=== PATIENT | female | born 1975 | race Caucasian/White ===

== ENCOUNTER 2022-12-15 06:59 | Observation (INO) | payer OTHER, SELFPAY ==
[2022-12-14 09:43] LABS: BASOPHILS # (AUTO) 0.1 (0.0-0.1); BASOPHILS % 0.6 % (0.0-1.0); EOSINOPHILS # (AUTO) 0.1 (0.0-0.4); EOSINOPHILS % 1.4 % (0.0-6.0); HEMATOCRIT 40.9 % (34.2-44.1); HEMOGLOBIN 13.4 g/dL (12.0-16.0); LYMPHOCYTES # (AUTO) 1.6 (1.0-3.2); LYMPHOCYTES % 19.7 % (18.0-39.1); MEAN CORPUSCULAR HEMOGLOBIN 28.6 pg (28-32); MEAN CORPUSCULAR HGB CONC 32.8 g/dL (31-35); MEAN CORPUSCULAR VOLUME 87.4 fL (81-99); MONOCYTES # (AUTO) 0.6 (0.2-0.8); MONOCYTES % 6.9 % (4.4-11.3); NEUTROPHILS # (AUTO) 5.7 (2.1-6.9); NEUTROPHILS % 71.1 % (38.7-80.0); PLATELET COUNT 253 x10e3/uL (140-360); RED BLOOD COUNT 4.68 x10e6/uL (3.6-5.1)
[2022-12-14 10:04] LABS: ANION GAP 13.2 mmol/L (8-16); CALCIUM 9.4 mg/dL (8.4-10.2); CREATININE, SERUM 1.02 mg/dL (0.57-1.11); POTASSIUM 4.2 mmol/L (3.5-5.1)
[2022-12-14 10:16] LABS: INR 0.99; PROTHROMBIN TIME 13.6 seconds (11.9-14.5)
[~2022-12-15] VITALS: Ht 167.6 cm; Wt 79.4 kg
[~2022-12-15 06:59] MED LIST: AVODART0.5 MG PO; B COMPLEX1 EACH; CELECOXIB 200 MG CAP ONE; DEXAMETHASONE SOD PHOS 10 MG/1 ML VIAL ONE; DOXEPIN HCL25 MG PO; DOXYCYCLINE HY100 MG PO; GABAPENTIN 300 MG CAP ONE; LACTATED RINGER'S 1,000 ML ONE; METRONIDAZOLE250 MG TOP; MINOXIDIL2.5 MG PO; SODIUM CHLORIDE 0.9% 500ML 500 ML ONE; SPIRONOLACTONE25 MG PO; TRANEXAMIC ACID 20 ML ONE; VITAMIN D; Vancomycin IV 1,000 MG ONE; ZINC
[2022-12-15] MEDS ORDERED: CEFAZOLIN SODIUM 2 GM ONE (07:34)
[2022-12-15] MEDS ORDERED: ROPIVACAINE 246.25 MG, EPINEPHRINE HCL 1:1000 1ML 0.5 MG, CLONIDINE HCL 0.08 MG, KETORO... INJ ONE ×5 (08:00)
[2022-12-15] MEDS ORDERED: METHOCARBAMOL 100MG/1ML 10ML VIAL ONE (08:07)
[2022-12-15] MEDS ORDERED: ACETAMINOPHEN 1000 MG/100 ML 100 ML IV ONE (08:07)
[2022-12-15] MEDS ORDERED: SODIUM CHLORIDE 0.9% 100 ML ONE ×2 (08:08)
[2022-12-15] MEDS ORDERED: DOCUSATE SODIUM 100 MG CAP PO PRN (10:15)
[2022-12-15] MEDS ORDERED: DIPHENHYDRAMINE HCL INJ 50 MG/ML VIAL IV PRN (10:15)
[2022-12-15] MEDS ORDERED: ZOLPIDEM TARTRATE 5 MG TAB PO PRN (10:15)
[2022-12-15] MEDS ORDERED: ONDANSETRON HCL INJ 2MG/ML 2ML 2 MG/ML VIAL IV PRN (10:15)
[2022-12-15] MEDS ORDERED: HYDROCODONE/APAP 5MG-325MG TAB PO PRN (10:15)
[2022-12-15] MEDS ORDERED: FENTANYL CITRATE/PF 100MCG/2 ML INJ ONE ×3 (10:33→13:43)
[2022-12-15] MEDS ORDERED: FENTANYL CITRATE/PF 100MCG/2 ML INJ IV ONE (10:35)
[2022-12-15] MEDS ORDERED: HYDROMORPHONE 1MG/1ML INJ IV ONE (10:55)
[2022-12-15] MEDS ORDERED: HYDROMORPHONE 1MG/1ML INJ ONE (10:55)
[2022-12-15] MEDS ORDERED: DIPHENHYDRAMINE HCL INJ 50 MG/ML VIAL IV ONE (11:22)
[2022-12-15] MEDS ORDERED: PROPOFOL IV EMULSION 10 MG/ML 20 ML VIAL ONE (12:29)
[2022-12-15] MEDS ORDERED: SEVOFLURANE INHAL SOLN 250 ML PEN BTL ONE (12:29)
[2022-12-15] MEDS ORDERED: POVIDONE IODINE 0.05% 0.05 % ML PO ONE (12:29)
[2022-12-15] MEDS ORDERED: LIDOCAINE HCL 2% LOCAL INJ 5 ML SDV VIAL INJ ONE (12:29)
[2022-12-15] MEDS ORDERED: ONDANSETRON HCL INJ 2MG/ML 2ML 2 MG/ML VIAL ONE (12:29)
[2022-12-15] MEDS ORDERED: GLYCOPYRROLATE INJ 0.2 MG/ML VIAL ONE (12:29)
[2022-12-15] MEDS ORDERED: NEOSTIGMINE 1 MG/ML 10ML VIAL ONE (12:29)
[2022-12-15] MEDS: HYDROCODONE/APAP 7.5MG-325MG 1 EA TAB PO PRN ×3 (13:10→21:10)
[2022-12-15] MEDS ORDERED: EPINEPHRINE HCL 1:1000 1ML 1 MG/ML AMP ONE (13:13)
[2022-12-15] MEDS ORDERED: BUPIVACAINE 0.25% 30ML SDV ONE (13:13)
[2022-12-15] MEDS ORDERED: MIDAZOLAM HCL 2 MG/2 ML VIAL ONE (13:29)
[2022-12-15] MEDS: SODIUM CHLORIDE 0.9% 1000ML 1,000 ML IV SCH ×2 (13:51→21:10)
[2022-12-15 15:41] VITALS: BP 99/67
[2022-12-15] MEDS ORDERED: ASPIRIN81 MG PO (17:18)
[2022-12-15] MEDS: ASPIRIN 325 MG TAB PO SCH (17:19)
[2022-12-15] MEDS: CELECOXIB 100 MG CAP PO SCH (17:19)
[2022-12-15] MEDS ORDERED: ACETAMINOPHEN 1000 MG/100 ML IV PRN (18:00)
[2022-12-16] MEDS: SODIUM CHLORIDE 0.9% 1000ML 1,000 ML IV SCH ×2 (05:09→12:19)
[2022-12-16 05:41] LABS: HEMATOCRIT 30.7 % (34.2-44.1); HEMOGLOBIN 9.8 g/dL (12.0-16.0)
[2022-12-16 07:14] VITALS: BP 99/67
[2022-12-16] MEDS: CELECOXIB 100 MG CAP PO SCH (08:41)
[2022-12-16] MEDS: HYDROCODONE/APAP 7.5MG-325MG 1 EA TAB PO PRN ×2 (08:41→13:14)
[2022-12-16] MEDS: ASPIRIN 325 MG TAB PO SCH (08:41)
[2022-12-16 09:02] VITALS: BP 96/68
[2022-12-16] MEDS ORDERED: ONDANSETRON HCL 4 MG ORAL DISINTEGRATING TAB PO PRN (13:00)
[2022-12-16 13:03] VITALS: BP 100/63
== END 2022-12-16 16:19 | disposition home or self-care (01) ==
LOC: OR 06:59 → PACU V 10:08 → MED/SURG 12:00
PROVIDERS: ADMIT Specialist; ATTEND Specialist
DX: M87.9 Osteonecrosis, unspecified (principal); J45.909 Unspecified asthma, uncomplicated; Z88.1 Allergy status to other antibiotic agents; Z01.812 Encounter for preprocedural laboratory examination; Z20.822 Contact with and (suspected) exposure to COVID-19; Z79.82 Long term (current) use of aspirin; Z79.899 Other long term (current) drug therapy
CPT/HCPCS: 0223U; 27130; 36415 ×2; 72170; 80048; 81025; 85014; 85018; 85025; 85610; 85730; 86850; 86900; 86920; 94799 ×2; 97112 ×2; 97116 ×2; 97162; 97530 ×4; C1713 ×2; C1776 ×3; G0378 ×2; J0131; J0171; J0690 ×2; J1100; J1170; J1200; J1885; J2001; J2250; J2405; J2704; J2710; J2795; J3010; J3370; J7030; J7040; J7050; J7121; J2800

== ENCOUNTER 2024-12-19 06:36 | Observation (INO) | payer BC ==
[2024-12-18 11:48] LABS: BASOPHILS % 0.4 % (0.0-1.0); EOSINOPHILS # (AUTO) 0.1 (0.0-0.4); EOSINOPHILS % 1.1 % (0.0-6.0); HEMATOCRIT 39.3 % (34.2-44.1); HEMOGLOBIN 12.2 g/dL (12.0-16.0); LYMPHOCYTES # (AUTO) 1.6 (1.0-3.2); LYMPHOCYTES % 21.7 % (18.0-39.1); MEAN CORPUSCULAR HEMOGLOBIN 24.8 pg (28-32); MEAN CORPUSCULAR VOLUME 79.9 fL (81-99); MONOCYTES # (AUTO) 0.4 (0.2-0.8); NEUTROPHILS % 70.5 % (38.7-80.0); PLATELET COUNT 326 x10e3/uL (140-360); RED BLOOD COUNT 4.92 x10e6/uL (3.6-5.1); RED CELL DISTRIBUTION WIDTH 13.8 % (11.7-14.4); WHITE BLOOD COUNT 7.14 x10e3/uL (4.8-10.8)
[2024-12-18 12:08] LABS: INR 0.94; PROTHROMBIN TIME 13.1 seconds (11.9-14.5)
[2024-12-18 12:16] LABS: CALCIUM 9.1 mg/dL (8.4-10.2); CREATININE, SERUM 0.95 mg/dL (0.57-1.11)
[~2024-12-19] VITALS: Ht 167.6 cm; Wt 83.5 kg
[~2024-12-19 06:36] MED LIST changes: +ALLEGRA-D 24 H1 EACH PO; +ASPIRIN81 MG PO; -CELECOXIB 200 MG CAP ONE; -DEXAMETHASONE SOD PHOS 10 MG/1 ML VIAL ONE; -GABAPENTIN 300 MG CAP ONE; -LACTATED RINGER'S 1,000 ML ONE; +SINGULAIR10 MG PO; -SODIUM CHLORIDE 0.9% 500ML 500 ML ONE; -TRANEXAMIC ACID 20 ML ONE; -Vancomycin IV 1,000 MG ONE
[2024-12-19] MEDS: CELECOXIB 200 MG CAP ONE (07:36)
[2024-12-19] MEDS: GABAPENTIN 300 MG CAP ONE (07:37)
[2024-12-19] MEDS: LACTATED RINGER'S 1,000 ML ONE (07:37)
[2024-12-19] MEDS: DEXAMETHASONE SOD PHOS 10 MG/1 ML VIAL ONE (07:37)
[2024-12-19] MEDS: CEFAZOLIN SODIUM 2 GM ONE (07:38)
[2024-12-19] MEDS ORDERED: METRONIDAZOLE CREAM TOP (07:47)
[2024-12-19] MEDS ORDERED: DEXAMETHASONE SOD PHOS INJ 4 MG/ML SDV ONE (07:57)
[2024-12-19] MEDS ORDERED: LIDOCAINE HCL 2% LOCAL INJ 5 ML SDV VIAL INJ ONE (07:57)
[2024-12-19] MEDS ORDERED: PROPOFOL IV EMULSION 10 MG/ML 20 ML VIAL ONE (07:57)
[2024-12-19] MEDS ORDERED: FENTANYL CITRATE/PF 100MCG/2 ML INJ ONE ×3 (07:58→11:29)
[2024-12-19] MEDS ORDERED: ONDANSETRON HCL INJ 2MG/ML 2ML 2 MG/ML VIAL ONE (07:58)
[2024-12-19] MEDS ORDERED: ROCURONIUM BROMIDE 1 ML IV ONE ×2 (08:43→09:53)
[2024-12-19] MEDS ORDERED: SUGAMMADEX SODIUM 200 MG/2 ML VIAL IV ONE (09:39)
[2024-12-19] MEDS ORDERED: HYDROCODONE/APAP 5MG-325MG TAB PO PRN (10:15)
[2024-12-19] MEDS ORDERED: DIPHENHYDRAMINE HCL INJ 50 MG/ML VIAL IV PRN (10:15)
[2024-12-19] MEDS ORDERED: ONDANSETRON HCL INJ 2MG/ML 2ML 2 MG/ML VIAL IV PRN (10:15)
[2024-12-19] MEDS ORDERED: DOCUSATE SODIUM 100 MG CAP PO PRN (10:15)
[2024-12-19] MEDS: HYDROMORPHONE 1MG/1ML INJ ONE ×2 (10:35→10:59)
[2024-12-19] MEDS: ROPIVACAINE/EPI/CLONIDINE/KET 50 ML SYRINGE INJ ONE (16:22)
[2024-12-19] MEDS: CELECOXIB 100 MG CAP PO SCH (16:30)
[2024-12-19] MEDS: SODIUM CHLORIDE 0.9% 1000ML 1,000 ML IV SCH (16:31)
[2024-12-19] MEDS: ASPIRIN 325 MG TAB PO SCH (16:31)
[2024-12-19 17:09] VITALS: BP 115/68; PULSE 83; RESP 16; TEMP 97.2; O2SAT 97
[2024-12-19 17:10] VITALS: BP 115/68; PULSE 83; RESP 16; TEMP 97.2; O2SAT 97
[2024-12-19 17:14] VITALS: BP 104/64; PULSE 84; RESP 18; TEMP 97.7; O2SAT 99
[2024-12-19 20:00] VITALS: BP 101/63; PULSE 85; RESP 18; TEMP 98; O2SAT 97
[2024-12-19 21:00] VITALS: BP 101/63; PULSE 85; RESP 18; TEMP 98; O2SAT 97
[2024-12-20] VITALS: BP 118/73; PULSE 78; RESP 18; TEMP 99.2; O2SAT 97
[2024-12-20 04:00] VITALS: BP 114/65; PULSE 67; RESP 18; TEMP 98; O2SAT 99
[2024-12-20] MEDS: HYDROCODONE/APAP 7.5MG-325MG 1 EA TAB PO PRN (04:45)
[2024-12-20 08:03] LABS: BASOPHILS % 0.1 % (0.0-1.0); HEMATOCRIT 29.5 % (34.2-44.1); HEMOGLOBIN 9.1 g/dL (12.0-16.0); LYMPHOCYTES % 6.9 % (18.0-39.1); MEAN CORPUSCULAR HEMOGLOBIN 24.7 pg (28-32); MEAN CORPUSCULAR HGB CONC 30.8 g/dL (31-35); MEAN CORPUSCULAR VOLUME 80.2 fL (81-99); MONOCYTES % 6.7 % (4.4-11.3); NEUTROPHILS # (AUTO) 12.9 (2.1-6.9); PLATELET COUNT 230 x10e3/uL (140-360); RED BLOOD COUNT 3.68 x10e6/uL (3.6-5.1); RED CELL DISTRIBUTION WIDTH 13.9 % (11.7-14.4); WHITE BLOOD COUNT 14.97 x10e3/uL (4.8-10.8)
[2024-12-20 08:20] LABS: ANION GAP 14.2 mmol/L (8-16); CALCIUM 8.1 mg/dL (8.4-10.2); CREATININE, SERUM 0.86 mg/dL (0.57-1.11); POTASSIUM 4.2 mmol/L (3.5-5.1)
[2024-12-20 08:21] VITALS: BP 103/67; PULSE 60; RESP 18; TEMP 98; O2SAT 99
[2024-12-20 08:53] LABS: INR 0.98; PARTIAL THROMBOPLASTIN TIME 23.7 seconds (23.8-35.5); PROTHROMBIN TIME 13.6 seconds (11.9-14.5)
[2024-12-20] MEDS ORDERED: ONDANSETRON HCL 4 MG ORAL DISINTEGRATING TAB PO PRN (09:00)
[2024-12-20] MEDS: MONTELUKAST SODIUM 10 MG TAB PO SCH (09:20)
[2024-12-20] MEDS ORDERED: ACETAMINOPHEN 1000 MG/100 ML IV PRN (10:15)
[2024-12-20 11:09] VITALS: PULSE 65; RESP 18; O2SAT 93
[2024-12-20 12:15] VITALS: BP 104/68; PULSE 78; RESP 18; TEMP 98.2; O2SAT 100
== END 2024-12-20 15:45 | disposition home or self-care (01) ==
LOC: OR 06:36 → PACU V 10:12 → MED/SURG3 16:13
PROVIDERS: ADMIT Specialist; ATTEND Specialist
DX: M87.051 Idiopathic aseptic necrosis of right femur (principal); D64.9 Anemia, unspecified; F41.9 Anxiety disorder, unspecified; Z01.812 Encounter for preprocedural laboratory examination; N28.9 Disorder of kidney and ureter, unspecified; J45.909 Unspecified asthma, uncomplicated
CPT/HCPCS: 27130; 36415 ×2; 72170; 80048 ×2; 81025; 85025 ×2; 85610 ×2; 85730 ×2; 86850; 86900; 97116; 97161; 97530 ×3; 99252; C1713 ×2; C1776 ×3; G0378 ×2; J0690 ×2; J1100 ×2; J1171; J2003; J2405; J2704; J3010; J7030 ×2; J7121